=== PATIENT | male | born 2000 | race Caucasian/White ===

== ENCOUNTER 2023-11-19 22:10 | Emergency (ER) | payer OTHER, SELFPAY ==
[2023-11-19 22:16] VITALS: BP 140/94
--- NOTE | 2023-11-19 23:43 | ED.GENMED ---
History of Present Illness
General
Chief Complaint: Skin Surface Trauma
Source: patient
Exam Limitations: none
Time Seen by Provider: 11/19/23 23:31
Nursing documentation reviewed up to this point in time: agreed with
History of Present Illness
History of Present Illness:
23 y/o M
no pmh
here with fishhook in left great toe region at 9 pm
was at [facility] and didn' see it on the ground
tried to poke it through but unable
tetanus 5 years ago
no bleeding
Past History
Past History
ED Past Medical History: None
ED Past Surgical History: None
Social History
Tobacco: Non-smoker
Alcohol: None
Drug: None
Personal: Single
Living: with family
Review of Systems
Review of Systems
Allergies reviewed?: Yes
All Other Systems: Not applicable
Phy Exam
Physical Exam
Physical Exam:
GENERAL: Alert , in no apparent distress, comfortable at rest
HEAD: NCAT
CV: 2+ DP PULSES B/L
NEUROLOGICAL: Alert and oriented, no focal neuro deficits, , 5/5 strength, sensation intact,
SKIN: Warm and dry, puncture wound in left great toe MTP region where there is a fish hook
MUSCULOSKELETAL: full ROM of toe and foot
no erythema
PSYCH: Normal and appropriate interaction.
Course
Orders/Labs/Results
Orders:
Orders
11/19/23 22:22
Foot, Left 3 View [CR Foot - Left Min 3 Views] Urgent
Comment:
Reason For Exam: FISH HOOK STUCK IN BALL OF FOOT
Vital Signs
Initial and Last Documented VS:
Initial Vital Signs
Temp Pulse BP Pulse Ox
99.6 F 95 140/94 99
11/19/23 22:16 11/19/23 22:16 11/19/23 22:16 11/19/23 22:16
Last Documented Vital Signs
Temp Pulse BP Pulse Ox
99.6 F 95 140/94 99
11/19/23 22:16 11/19/23 22:16 11/19/23 22:16 11/19/23 22:16
Procedures
Foreign Body Removal-Skin
Wound explored and foreign body removed?: Yes
Anesthesia: local and 1% lidocaine
Foreign body removed using: forceps (18 gauge need to capture ankit)
Foreign body removed: completely
MDM/Problems Addressed
Differential Diagnosis Includes:
fish hook retained, puncture wound
MDM/Problems Addressed:
23 y/o M retained fishhook in left foot
teatnus UTD
18 gauge used to remove after anesthetizing
irrigated/soaked in betadine solution
bactrim x 5 days
return precautions
*Critical Care Note
Total Time (30-74mins, 75-104mins- exclusive of procedures): Not Applicable
ED Attending Note
-
Portions of this chart may have been created with voice recognition software.� Occasional wrong word or��sound alike� substitutions may have occurred due to the inherent limitations of voice recognition software.
Discharge Plan
Departure
Patient Disposition: Home (Routine Discharge)
Date of Disposition: 11/19/23
Time of Disposition: 23:46
Patient with high blood pressure during this ER visit?: No
Condition: Fair
Covid-19: Not Applicable
Discharge Problem:
Fish hook in great toe
Instructions: Foreign Body in Skin (DC)
Prescriptions:
New
sulfamethoxazole-trimethoprim [Bactrim DS] 800-160 mg tablet
1 tab PO BID Qty: 10 0RF
Activity Restrictions/Additional Instructions:
THE FISH HOOK WAS REMOVED
KEEP THE PUNCTURE CLEAN
WATCH FO RSIGNS OF INFECTION
BACTRIM 1 TAB TWICE A DAY FOR 5 DAYS
RETURN FOR ANY COCNERS.
Interventions
Interventions:
*Risk Screen - Suicide Last Done: 11/19/23 22:17
*Neglect/Abuse Screening Last Done: 11/19/23 22:17
ED-Skin Assessment Last Done: 11/19/23 23:42
Discharge Date and Time
Print Language: NIGERIEN
[2023-11-20 00:05] VITALS: BP 159/93
== END 2023-11-20 00:06 | disposition home or self-care (01) ==
LOC: EMR 22:10
PROVIDERS: EMERGENCY PHYSICIAN Emergency Medicine
DX: S91.142A Puncture wound with foreign body of left great toe without damage to nail, initial encounter (principal); W45.8XXA Other foreign body or object entering through skin, initial encounter
CPT/HCPCS: 99283; 73630